=== PATIENT | female | born 1995 | race Caucasian/White ===

== ENCOUNTER → 2020-01-13 | Outpatient (CLI) | payer OTHER ==
--- NOTE | 2020-01-13 16:24 | Diagnostic Imaging Report ---
INDICATION: Left breast lump as well as itchiness and discoloration to the left nipple. COMPARISON: Correlation is made with diagnostic mammogram from earlier the same day. EXAMINATION: Sonographic Interrogation of the area of lump in the left breast was performed, corresponding to the 2:00 location, 7 cm from the nipple. No sonographic abnormality is seen. No solid or cystic mass is detected. In addition, evaluation of the retroareolar left breast was performed. No sonographic abnormality is detected. IMPRESSION: No sonographic abnormality is identified. Continued close clinical self breast examination is recommended to confirm stability of the palpable abnormality. ACR BI-RADS Category 1: Negative. Result letter will be mailed to the patient. Note: At least 10% of breast cancer is not imaged by mammography. Dictated on workstation # [id number]
--- NOTE | 2020-01-13 16:27 | Diagnostic Imaging Report ---
INDICATION: Left breast lump. Patient also complains of left nipple itchiness and occasional discoloration. COMPARISON: No prior mammograms are available for comparison. EXAMINATION: 2D and 3D diagnostic mammography on the left was performed including CC and MLO views. A right MLO view was also obtained for comparison purposes. FINDINGS: The breasts are heterogeneously dense, limiting the sensitivity of mammography. A BB marker was placed at the area of palpable abnormality in upper outer left breast. No underlying abnormality is seen. No mass or suspicious microcalcifications are seen. Axillae are unremarkable. IMPRESSION: No mammographic features suspicious for malignancy are identified. Even so, directed sonographic interrogation of the area of palpable abnormality upper outer left breast as well as the retroareolar left breast is recommended and will be performed today. ACR BI-RADS Category 0: Incomplete. (Needs additional imaging evaluation). Result letter will be mailed to the patient. Note: At least 10% of breast cancer is not imaged by mammography. Dictated on workstation # [id number]
== END ==
LOC: RAD 12:48
PROVIDERS: ATTEND Nurse Practitioner Family
DX: N63.21 Unspecified lump in the left breast, upper outer quadrant (principal)
CPT/HCPCS: 76642

== ENCOUNTER → 2021-06-19 | Outpatient (CLI) | payer SELFPAY ==
--- NOTE | 2021-06-19 14:27 | Diagnostic Imaging Report ---
INDICATION: Left breast pain. Correlation is made with prior mammogram from 01/13/2020. 2-D and 3-D bilateral diagnostic mammography was performed with CAD. Both breasts are heterogeneously dense, limiting the sensitivity of mammography. No mass or malignant-appearing microcalcifications are seen. Axillae are unremarkable. IMPRESSION: No mammographic features suspicious for malignancy are identified. Even so, directed sonographic interrogation of the area of pain in the left breast is recommended and will be performed today. BI-RADS 0 ACR BI-RADS Category 0: Incomplete. (Needs additional imaging evaluation). Result letter will be mailed to the patient. Note: At least 10% of breast cancer is not imaged by mammography. Dictated by: Dictated on workstation # [id number]
--- NOTE | 2021-06-19 15:06 | Diagnostic Imaging Report ---
INDICATION: Pain in the left breast and left axilla. COMPARISON: Correlation is made with diagnostic mammogram earlier the same day. EXAMINATION: Sonographic interrogation of area of pain in the left breast was performed. FINDINGS: No sonographic evident abnormality is seen. No solid or cystic mass is detected. IMPRESSION: No sonographic abnormality is detected. ACR BI-RADS Category 1: Negative. Result letter will be mailed to the patient. Note: At least 10% of breast cancer is not imaged by mammography. Dictated by: Dictated on workstation # [id number]
== END ==
LOC: RAD 13:15
PROVIDERS: ATTEND Nurse Practitioner Family
DX: N64.4 Mastodynia (principal)
CPT/HCPCS: 76642; 77066; G0279; 77062